=== PATIENT | female | born 1975 | race African-American/Black ===

== ENCOUNTER 2018-03-12 11:38 | Emergency (ER) | payer OTHER ==
[2018-03-12 11:48] VITALS: BP 138/80; PULSE 71; TEMP 98.1; BMI 19.3
[2018-03-12] MEDS ORDERED: IBUPROFEN 600 MG TABLET (FP) PO ONE ×2 (11:52→11:59)
--- NOTE | 2018-03-12 11:52 | PDOC ---
History of Present Illness - General Chief Complaint: Injury Stated Complaint: RT KNEE PAIN Time Seen by Provider: 03/12/18 11:40 History Source: Patient Exam Limitations: No Limitations - History of Present Illness Initial Comments: 03/12/18 11:53 MS Kauffman is a 42-year-old female with no significant past medical history who presents emergency department with a complaint of right knee pain. Patient states that she was in her usual state of health, while at work she accidentally tripped over a box and landed on her right knee. She has been ambulatory since but has noticed increased pain and swelling. She has no limitations in range of motion. Does note that her knee sometimes feels unstable/unsteady. She has noted increased swelling over the knee and tenderness to palpation. PMH: Denies PSH: Denies Medication: Denies ALLERGIES: No known ALLERGIES Social: Denies alcohol, drug, cigarette use GENERAL/CONSTITUTIONAL: No: fever, chills, weakness, loss of appetite. HEAD, EYES, EARS, NOSE AND THROAT: No: change in vision, ear pain, discharge, sore throat, throat swelling. CARDIOVASCULAR: No: chest pain, lightheadedness, palpitations, syncope RESPIRATORY: No: cough, shortness of breath, wheezing, hemoptysis, stridor. GASTROINTESTINAL: No: nausea, vomiting, diarrhea, abdominal cramping, rectal bleeding, constipation. GENITOURINARY: No: dysuria, hematuria, frequency, urgency, flank pain. MUSCULOSKELETAL: YEs: right knee pain and swelling No: back pain, neck pain SKIN: No: lesions, pallor, rash or easy bruising. NEUROLOGIC: No: headache, vertigo, paresthesias, weakness ENDOCRINE: No: unexplained weight gain or loss HEMATOLOGIC/LYMPHATIC: No: anemia, easy bleeding, swelling nodes. General: Appears well, non-toxic. Skin: Warm and dry. No lesions or rashes of exposed skin appreciated. HEENT Exam: Head is symmetrical, midline, NC/AT. Ears are symmetrical without erythema or ecchymosis. Eyes symmetrical. Conjunctivae pink. Sclerae white. Corneas clear. PERRLA, EOM intact Nose without any discharge or swelling. Mouth : Oral mucosa is moist and pink. There is no exudate, erythema of the oropharynx , airway is patent. Neck is symmetrical, supple. Trachea is midline. FROM No anterior cervical lymphadenopathy is appreciated. Cardiac: RRR, No R/M/G Respiratory: CTA B/L, no W/R/R Musculoskeletal: No deformities. Right knee swollen. Full range of motion at the right knee. No laxity of the MCL, LCL, ACL, PCL appreciated. Patient able to bear weight. Ambulating with a limp. Capillary refill less than 2 seconds bilaterally. Soft compartments Neurologic: The patient is awake, alert, oriented x3. Gross motor and sensory exam is found to be intact. Sensation of distal lower extremities intact. Past History - Past Medical History Allergies/Adverse Reactions: Allergies Allergy/AdvReac Type Severity Reaction Status Date / Time No Known Allergies Allergy Verified 03/12/18 11:39 Home Medications: Ambulatory Orders NK [No Known Home Medication] 03/12/18 COPD: No Other medical history: DENIES - Suicide/Smoking/Psychosocial Hx Smoking History: Never smoked Have you smoked in the past 12 months: No Information on smoking cessation initiated: No Hx Alcohol Use: No *Physical Exam - Vital Signs Last Vital Signs Temp Pulse Resp BP Pulse Ox 98.1 F 71 18 138/80 100 03/12/18 11:38 03/12/18 11:38 03/12/18 11:38 03/12/18 11:38 03/12/18 11:38 Medical Decision Making - Medical Decision Making 03/12/18 11:57 This is a 42-year-old female presented 5 days status post injury to the right knee complaining of pain and swelling. Differential diagnosis includes but is not limited to: Meniscal tear, other ligamentous injury, reactive joint effusion, patient is tender over the patella, possible patella fracture, unlikely tibial plateau fracture as patient is ambulatory. Will do X-ray Will give motrin Re assess 03/12/18 13:46 Xray appears to demonstrate no fracture or dislocation Will discharge to home Still awaiting official read by Radiologist Clinical Impression: knee injury, initial presentation *DC/Admit/Observation/Transfer Diagnosis at time of Disposition: Right knee injury Qualifiers: Encounter type: initial encounter Qualified Code(s): S89.91XA - Unspecified injury of right lower leg, initial encounter - Discharge Dispostion Disposition: HOME Condition at time of disposition: Stable Decision to Admit order: No - Referrals Referrals: Roel Walsh MD [Staff Physician] - - Patient Instructions Printed Discharge Instructions: DI for Knee Sprain, DI for Knee Effusion, DI for Knee Pain Additional Instructions: Ms Kauffman Thank you for coming into the emergency Department today. You can take Motrin every 8 hours for pain. You can Delgado wrap. Me as is comfortable for you. Please be sure to follow up with employee communications specialist for reevaluation. Please call the ER in 1-2 hours for final report - [phone] - Post Discharge Activity Forms/Work/School Notes: Back to Work
== END 2018-03-12 14:24 | disposition home or self-care (01) ==
LOC: FER 11:38 → EDBD 11:38 → FER 14:24
DX: S89.91XA Unspecified injury of right lower leg, initial encounter (principal); X58.XXXA Exposure to other specified factors, initial encounter; Y93.89 Activity, other specified; Y92.9 Unspecified place or not applicable
CPT/HCPCS: 73564-TC-RT-FY; 84703; 99283-25